=== PATIENT | female | born 1995 | race Asian ===

== ENCOUNTER 2024-09-12 10:03 | Emergency (ER) | payer OTHER, SELFPAY ==
[2024-09-12 10:03] VITALS: BP 121/66; PULSE 69; RESP 14; TEMP 36.6; O2SAT 100
[2024-09-12 10:20] VITALS: BP 134/61; PULSE 64; RESP 18; TEMP 36.6; O2SAT 99
--- NOTE | 2024-09-12 10:21 | EX.ED.UPPERE ---
HPI History of Present Illness Chief Complaint: Upper Extremity Injury Informant: patient and family Narrative Narrative: 29-year-old female had a work related injury this morning, she works at [employer] and she states 2 heavy carts came together and caught her right hand in between. She states it swelled up pretty quickly. She felt some pain and numbness that quickly radiated up to her right shoulder but resolved after a minute or 2. She denies any other injury or twisting or torquing injuring shoulder, neck, or anything else. She is [id number]. PFSH PFSH Medical History no medical history no medical history Allergy/AdvReac Type Severity Reaction Status Date / Time No Known Allergies Allergy Verified 09/12/24 10:04 Social History Smoking Status: Never smoker ROS ROS ED Constitutional Constitutional ED: Denies chills or fever(s) Musculoskeletal Musculoskeletal: Reports extremity pain; Denies neck pain Integumentary Denies Abrasions, rash or wounds Neurologic Neurologic: Denies paresthesias or weakness EXAM Physical Exam Const Vital Signs: 09/12/24 10:03 Temperature 98 F Temperature Source Temporal Pulse Rate 69 Respiratory Rate 14 Blood Pressure 121/66 H Blood Pressure Mean 84 Pulse Ox 100 Oxygen Delivery Method Room Air Positive well nourished and well developed General Appearance ED: well developed and NAD Neck full ROM and supple Back/Spine normal ROM and normal to inspection Extremity full ROM Extremity Narrative: Contusion with ecchymosis at the right hand palm along the second ray, also visible dorsally. There is some focal tenderness along the second metacarpal but none of the other bones of the hand. All FDS, FDP, extensor tendon function intact. Limited range of motion of the index finger due to pain but she is able to oppose with the thumb without difficulty. 2+/4 radial pulse. Full range of motion throughout all other joints without any pain or tenderness including the wrist, elbow, shoulder. Neuro oriented x3, no focal motor deficits and no sensory deficits noted Sensorium / Orientation: alert Psych mental status grossly normal and thought process normal Skin no wounds Rashes: no rashes MDM MDM MDM Narrative Medical decision making narrative: Three-view x-ray series of the right hand were obtained and on my interpretation are normal showing no acute fracture or dislocations. Patient reassured, she was offered ibuprofen but declined and would take an ice pack instead, she was given appropriate temporary work restrictions and corporate care follow-up. Discharge Plan Triage Chief Complaint: Upper Extremity Injury ED Provider: Josse Romero Dx/Rx/DC Orders Clinical Impression: Contusion of hand, right Instructions: ED Hand Contusion Referrals: [facility] [Group of Physicians] - As soon as possible Print Language: Turkish Disposition Disposition: Home, Self Care
--- NOTE | 2024-09-12 10:23 | RAD_ITS ---
STUDY: X-RAY - RIGHT HAND REASON FOR EXAM: Female, 29 years old. Injury TECHNIQUE: 3 view(s) of the hand. COMPARISON: None. FINDINGS: Normal radiocarpal articulation. Normal distal radioulnar joint. Normal visualized carpal bones. Normal carpal articulations Normal carpometacarpal articulation of the thumb. Normal second through fifth carpometacarpal joints. Normal metacarpi. Normal metacarpophalangeal joint of the thumb. Normal interphalangeal joint of the thumb. Normal proximal and distal phalanges of the thumb. Normal metacarpophalangeal joints of the second through fifth fingers. Normal proximal and distal interphalangeal joints of the second through fifth fingers. Normal phalanges of the second through fifth fingers. The soft tissue structures are unremarkable. There is no acute fracture. RAD/Hand Min 3 Views IMPRESSION: Normal x-ray examination of the hand. Electronically Signed: Josse Francis MD at 10:54 EST ,
== END 2024-09-12 10:58 | disposition home or self-care (01) ==
LOC: ED 10:45
PROVIDERS: Emergency Provider Emergency Medicine; Visit Provider Emergency Medicine
DX: S60.221A Contusion of right hand, initial encounter (principal); W23.0XXA Caught, crushed, jammed, or pinched between moving objects, initial encounter; Y99.0 Civilian activity done for income or pay; Y92.512 Supermarket, store or market as the place of occurrence of the external cause
CPT/HCPCS: 73130; 99282